=== PATIENT | male | born 1950 | race Caucasian/White ===

== ENCOUNTER 2018-07-30 08:44 | Inpatient (IN) ==
[2018-07-30] MEDS ORDERED: ASPIRIN CHEW 324 MG PO STA (09:43)
[2018-07-30] MEDS ORDERED: SODIUM CHLORIDE 0.9% 1000ML 1,000 ML IV SCH (09:45)
[2018-07-30] MEDS ORDERED: ASPIRIN 81 MG CHEW ONE (09:51)
[2018-07-30 09:53] LABS: Basophils # (auto) 0.08 K/uL (0-0.2); Basophils % (auto) 0.9 %; Eosinophils # (auto) 0.16 K/uL (0-0.5); Eosinophils % (auto) 1.7 %; Hematocrit (blood only) 42.2 % (42-52); Hemoglobin 14.2 g/dL (14.0-18.0); Immature Granulocytes # (auto) 0.03 K/uL (0.00-0.02); Immature Granulocytes % (auto) 0.3 %; Lymphocytes # (auto) 1.65 K/uL (1.2-3.4); Lymphocytes % (auto) 17.9 %; Mean Corpuscular Hgb Conc 33.6 g/dL (32-36); Mean Corpuscular Volume 87.7 fL (80-100); Mean Platelet Volume 10.7 fL (7.4-10.4); Monocytes # (auto) 0.56 K/uL (0.11-0.59); Monocytes % (auto) 6.1 %; Neutrophils # (auto) 6.75 K/uL (1.4-6.5); Neutrophils % (auto) 73.1 %; Platelet Count 244 K/uL (130-400); RDW Coefficient of Variation 13.2 % (11.5-14.5); RDW Standard Deviation 42.2 fL (36.4-46.3); Red Blood Count 4.81 M/uL (4.7-6.1); White Blood Count 9.23 K/uL (4.8-10.8)
[2018-07-30] MEDS ORDERED: METOPROLOL TARTRATE 50 MG TAB PO STA (09:59)
[2018-07-30 10:01] LABS: Alanine Aminotransferase 32 U/L (12-78); Albumin Level 3.6 gm/dl (3.4-5.0); Aspartate Aminotransferase 22 U/L (15-37); Blood Urea Nitrogen 17 mg/dl (7-18); Calcium 8.4 mg/dl (8.5-10.1); Carbon Dioxide 27 mmol/L (21-32); Chloride 109 mmol/L (98-107); Creatinine Clr Calc Pharmacy 58.1 ml/min; Est GFR (African American) 74.1; Est GFR (Non-African American) 63.9; Glucose 98 mg/dl (70-99); Magnesium 2.2 mg/dl (1.8-2.4); Potassium 4.6 mmol/L (3.5-5.1); Sodium 141 mmol/L (136-145)
[2018-07-30] MEDS ORDERED: METOPROLOL TARTRATE 25 MG TAB PO STA (10:01)
[2018-07-30 10:11] LABS: Albumin Globulin Ratio 1.1 (0.9-2); Alkaline Phosphatase 98 U/L (45-117); Bilirubin,Total 0.5 mg/dl (0.2-1); Globulin 3.3 gm/dl (2.5-4.0); Total Protein 6.9 gm/dl (6.4-8.2); Troponin I < 0.015 ng/ml (0-0.045)
[2018-07-30] MEDS ORDERED: SODIUM CHLORIDE 0.9% 1000ML 250 ML IV ONE (11:05)
--- NOTE | 2018-07-30 12:23 | History & Physical Report ---
Date of Service July 30, 2018 Assessment & Plan (1) Paroxysmal A-fib: Mr. Fenton is a very pleasant 68-year-old male with a history of GERD with Schatzki's ring dilation, Pyloric Stenosis, Remote History of PUD / H. pylori (no recurrence following triple therapy), Dyslipidemia, Non-Obstructive CAD (50% LAD Stenosis on Cardiac CTA), and Paroxysmal Atrial Fibrillation (which was initially diagnosed in February 2018 when he presented with tachypalpitations and profound near-syncope). Patient was in his usual state of health this weekend, however he spent the weekend at a couple of with several other couples. He did drink some alcohol yesterday including a gil and an IPA at lunchtime, followed by 2 [place]an coffees last night. In the ER he has showed a variety of rhythms -- including AFib with RVR, brief periods of Atrial Flutter with 2-1 conduction, and following the administration of Lopressor 25 mg -- patient has A-fib with a slow V rates, periods sinus rhythm, and sinus rhythm with 2nd degree AV Block with (2:1 conduction) with HR's in the mid 30's. I suspect that he may end up being diagnosed with Tachy- Orestes Syndrome at some point. -- Admit to Telemetry. -- Continue IVF fluids at 100 ml/hr. -- Reduce Aspirin to 81 mg daily. -- Begin Eliquis 5 mg bid as [id number] is 2. -- Begin Lopressor 12.5 mg bid. -- Continue Diltiazem CD 120 mg daily with hold parameters. Present on Admission?: Yes (2) CAD in rincon artery: Non-Obstructive CAD -- 50% LAD stenosis. -- Initial Troponin negative. -- No need for serial cardiac enzymes unless patient develops chest discomfort, dyspnea, etc. -- Patient had a negative Stress Echo within the past 6 months but failed to reach THR. -- Baseline Echo showed normal cardiac structure and function. -- Continue Rosuvastatin 10 mg daily. -- Continue Aspirin at 81 mg daily since starting Eliquis. -- Starting Lopressor 12.5 mg bid. Present on Admission?: Yes (3) Dyslipidemia: -- Rosuvastatin 10 mg daily. -- Heart healthy diet. Present on Admission?: Yes (4) Hypotension: Likely a combination of heart rhythm and dehydration (secondary alcohol and caffeine yeterday). -- Continue IVF's. -- Hold parameters on vaso-active meds. Present on Admission?: Yes History of Present Illness Chief Complaint: -- Paroxysmal Atrial Fibrillation with Intermittent RVR. -- Transient 2nd Degree Heart Block (2:1 AV Conduction). -- ? Tachy-Orestes Syndrome. -- Non- Obstructive CAD (50% LAD Stenosis on recent Cardiac CTA). Primary Care Provider: NO PCP Mr. Fenton is a very pleasant 68-year-old male with a history of GERD with Schatzki's ring dilation, Pyloric Stenosis, Remote History of PUD / H. pylori (no recurrence following triple therapy), Dyslipidemia, Non-Obstructive CAD (50% LAD Stenosis on Cardiac CTA), and Paroxysmal Atrial Fibrillation (which was initially diagnosed in February 2018 when he presented with tachypalpitations and profound near-syncope). Patient is followed by the [facility] (Dr. Pereyra) and he has a follow-up appointment with his editor managing newspaper this coming Tuesday. Patient was in his usual state of health this weekend, however he spent the weekend at a couple of with several other couples. He did drink some alcohol yesterday including a gil and an IPA at lunchtime, followed by 2 [place] coffees last night. Patient arose this morning and noted tachypalpitions and a "fast, irregular heartbeat." He took his usual dose of Diltiazem CD 120 mg this morning - but his heart continued to race. Therefore he came to the emergency room here. In the emergency room, he was noted to be in AFib with RVR, had brief periods of atrial flutter with 2-1 conduction, and following the administration of Lopressor 25 mg -- patient has developed A-fib with slow V rate and periods sinus rhythm and sinus rhythm with 2nd degree AV Block with (2:1 conduction) w ith HR's in the mid 30's. Patient offers no other complaints. He denies any chest pain, heaviness, tightness, pressure, or discomfort. He denies any neck, jaw, back, or arm pain. He denies any shortness of breath, unusual dyspnea exertion, recent changes in exertional tolerance, orthopnea, or PND. He denies any syncope or profound near-syncope. Historically, his blood pressure was low when he was initially diagnosed with atrial fibrillation. He is not having symptoms suggestive of stroke or mini stroke. Allergies Allergy/AdvReac Type Severity Reaction Status Date / Time No Known Allergies Allergy Unverified 07/30/18 09:30 Home Medications Home Medications Medication Instructions Recorded Confirmed Type aspirin 325 mg PO DAILY 07/30/18 07/30/18 History diltiazem HCl 120 mg PO QAM 07/30/18 07/30/18 History isosorbide mononitrate 30 mg PO QAM 07/30/18 07/30/18 History nitroglycerin 0.4 mg SUBLINGUAL DIRECTED PRN 07/30/18 07/30/18 History omeprazole 40 mg PO QAM 07/30/18 07/30/18 History rosuvastatin 10 mg PO DAILY 07/30/18 07/30/18 History Past Med/Surg History Medical History Afib Social History Preferred Language: French Communication Ability: Effective Physical Therapy Supervisor Required: No Beliefs That Will Affect Care: None Current Living Situation: Spouse Other Information That Helps Us Care for You: No Feels Safe at Home: Yes Safety Concerns: Feels Safe At This Time Smoking Status: Former smoker Hx Alcohol Use: Yes Hx Substance Use: No Physical Exam Vital Signs (Past 24 Hours): Last Vital Signs Temp 36.7 C 07/30/18 08:50 Pulse 64 07/30/18 12:09 Resp 18 07/30/18 12:09 BP 111/59 L 07/30/18 12:09 Pulse Ox 93 07/30/18 12:09 Physical Exam: General: Patient in no acute distress. HEENT: Head is atraumatic, normocephalic. EOMs intact. Sclerae anicteric. Facies symmetric. No perioral cyanosis. Neck: No JVD. Carotid upstrokes +2 bilaterally without bruits. JVP is not elevated. Chest and Lungs: Clear to auscultation throughout all lung tamayo, no wheezes, rales, or rhonchi. CVS: S1 and S2 are irregularly irregular with an apical rate of 68 bpm. No obvious murmurs, gallops, or rubs. PMI is nondisplaced. No lifts, heaves, or thrills. No abdominal aortic or renal bruits. Abdominal Exam: Bowel sounds present. No masses, organomegaly, or tenderness. Extremities: No clubbing, cyanosis, or edema. Intact posterior tibial and radial pulses bilaterally. Neurologic Exam: Patient is awake, alert, and oriented. Pleasant and cooperative. Answers questions appropriately. Speech is clear. Normal movement in all 4 extremities. Gait pattern was not assessed. Telemetry: -- AFib with RVR. -- Brief periods of atrial flutter with 2-1 conduction. Following the administration of Lopressor 25 mg: -- A-fib with slow V rates. -- Periods of sinus rhythm. -- Periods of sinus rhythm with 2nd degree AV Block with (2:1 conduction) with HR's in the mid 30's. Results & Data Laboratory Results Laboratory Results - last 24 hr 07/30/18 07/30/18 09:10 09:10 WBC 9.23 RBC 4.81 Hgb 14.2 Hct 42.2 MCV 87.7 MCH 29.5 MCHC 33.6 RDW Std Deviation 42.2 RDW Coeff of Kelvin 13.2 Plt Count 244 MPV 10.7 H Immature Gran % (Auto) 0.3 Neut % (Auto) 73.1 Lymph % (Auto) 17.9 [place] % (Auto) 6.1 Eos % (Auto) 1.7 Baso % (Auto) 0.9 Immature Gran # (Auto) 0.03 H Neut # (Auto) 6.75 H Lymph # (Auto) 1.65 [place] # (Auto) 0.56 Eos # (Auto) 0.16 Baso # (Auto) 0.08 Sodium 141 Potassium 4.6 Chloride 109 H Carbon Dioxide 27 Anion Gap 6.0 BUN 17 Creatinine 1.16 Est Cr Clr Drug Dosing 58.1 Est GFR ( Amer) 74.1 Est GFR (Non-Af Amer) 63.9 BUN/Creatinine Ratio 15.0 Glucose 98 Calcium 8.4 L Magnesium 2.2 Total Bilirubin 0.5 AST 22 ALT 32 Alkaline Phosphatase 98 Troponin I < 0.015 Total Protein 6.9 Albumin 3.6 Globulin 3.3 Albumin/Globulin Ratio 1.1 TSH 1.120 Medications Administered Active Medications Generic Name Dose Route Start Last Admin Trade Name Freq PRN Reason Stop Dose Admin Sodium Chloride 1,000 mls @ 125 mls/hr 07/30/18 09:45 07/30/18 09:49 Nss 1000ml IV 08/29/18 09:44 125 mls/hr .Q8H MAYURI Administration Code Status & VTE Plan Code Status Full Resuscitation VTE Prophylaxis Plan VTE Prophylaxis will be ordered: Yes Supervising Physician Co-Signing Physician Notes Basilio Rizvi MD (1) Hypotension Hypotension type: unspecified hypotension type Qualified Code(s): I95.9 - Hypotension, unspecified
[2018-07-30] MEDS ORDERED: NITROGLYCERIN SL 0.4 MG/TAB TAB SL PRN (12:48)
[2018-07-30] MEDS ORDERED: ACETAMINOPHEN 325 MG TAB PO PRN (13:10)
[2018-07-30] MEDS ORDERED: MAGNESIUM HYDROXIDE SUSP 30 ML UDC PO PRN (13:10)
[2018-07-30] MEDS ORDERED: ALUMINUM/MAGNESIUM/SIMETH (MAALOX MAX) 30 ML UDC PO PRN (13:10)
[2018-07-30] MEDS ORDERED: LORazepam 0.5 MG TAB PO PRN (13:10)
[2018-07-30] MEDS ORDERED: ONDANSETRON 4 MG OD TAB PO PRN (13:14)
[2018-07-30] MEDS: APIXABAN 5 MG TABLET PO SCH ×2 (14:49→20:24)
[2018-07-30] MEDS: ROSUVASTATIN CALCIUM 10 MG TAB PO SCH (14:50)
[2018-07-30] MEDS: NSS + 20MEQ KCL 20 MEQ/1,000 ML BAG IV SCH (14:51)
--- NOTE | 2018-07-30 15:14 | Emergency Department Note ---
Entered by Naomy Lao acting as a scribe for History of Present Illness General Chief complaint: Hypertension Stated complaint: RADPID HEART BEAT, IRREGULATE HEART BEAT Time Seen by Provider: 07/30/18 08:52 Source: patient History of Present Illness Onset (ago): hour(s) 6 Location: chest Pain Consistency: + now resolved and + other (episode ) Quality: + other (racing heartbeat) Associated symptoms: no chest pain, no diaphoresis and no shortness of breath Treatments prior to arrival: other (Diltiazem) The patient is a 68 year old male who presents to the Emergency Room with co mplaints of an episode of now resolved racing heartbeat that began at 0300 this morning, 6 hours prior to arrival. The patient states that he went back to bed and woke up with these symptoms again 4.5 hours later. The patient states that he took his diltiazem at this time for his symptoms, but states that this did not improve his symptoms immediately. The patient states that he could feel his heart racing, but denies sweating, shortness of breath, or chest pain with this episode. The patient states that he was found to have atrial fib and had a stress test, echo, and angiogram performed recently (last 2 weeks) which showed a 50-70% blockage in his left anterior descending artery. He states that he had no stents placed. The patient states that he was previously on Eliquis, but states that he now only takes Aspirin regularly. The patient states that he had alcohol last night. The patient states that he has an appointment with his buyer tobacco head in 5 days. Home Medications Home Medications Medication Instructions Recorded Confirmed Type aspirin 325 mg PO DAILY 07/30/18 07/30/18 History diltiazem HCl 120 mg PO QAM 07/30/18 07/30/18 History isosorbide mononitrate 30 mg PO QAM 07/30/18 07/30/18 History nitroglycerin 0.4 mg SUBLINGUAL DIRECTED PRN 07/30/18 07/30/18 History omeprazole 40 mg PO QAM 07/30/18 07/30/18 History rosuvastatin 10 mg PO DAILY 07/30/18 07/30/18 History metoprolol tartrate 12.5 mg PO BID 30 Days #30 tab 07/31/18 Rx Allergies Allergy/AdvReac Type Severity Reaction Status Date / Time No Known Allergies Allergy Unverified 07/30/18 09:30 Past Med/Surg History Medical History Afib Social History Preferred Language: Hebrew Beliefs That Will Affect Care: None Current Living Situation: Spouse Other Information That Helps Us Care for You: No Feels Safe at Home: Yes Safety Concerns: Feels Safe At This Time Smoking Status: Former smoker Hx Alcohol Use: Yes Hx Substance Use: No Review of Systems See HPI for pertinent positives & negatives. and A total of 10 systems reviewed and were otherwise negative Physical Exam Vital Signs Vital Signs - 24 hr 07/30/18 08:50 07/30/18 09:16 07/30/18 09:47 Temperature 36.7 C Temperature Source Oral Sepsis Recent Fever Within 48 Hours No Sepsis Action Taken by Nursing No Action Required Pulse Rate 80 Pulse Rate [Left Finger] 101 H Pulse Rhythm Regular Respiratory Rate 20 22 Respiratory Effort / Characteristics Non-Labored Spontaneous Respiratory Depth Normal Respiratory Pattern Regular Blood Pressure 121/79 Blood Pressure [Left Arm] 106/77 Blood Pressure Mean 93 Blood Pressure Mean [Left Arm] 86 Pulse Oximetry 96 95 96 Oxygen Delivery Method Room Air Room Air Room Air 07/30/18 10:37 07/30/18 12:09 07/30/18 12:20 Temperature Temperature Source Sepsis Recent Fever Within 48 Hours Sepsis Action Taken by Nursing Pulse Rate 64 Pulse Rate [Left Finger] 79 64 Pulse Rhythm Respiratory Rate 16 18 18 Respiratory Effort / Characteristics Respiratory Depth Respiratory Pattern Blood Pressure 111/59 L Blood Pressure [Left Arm] 111/71 111/59 L Blood Pressure Mean Blood Pressure Mean [Left Arm] 84 76 Pulse Oximetry 94 93 93 Oxygen Delivery Method Room Air Room Air Room Air Vital signs reviewed. General: Well-appearing 68 yo male, in no significant distress. HEENT: No scleral icterus, PERRLA, neck supple. Atraumatic. Cardiovascular: Regular rate and rhythm, no extra sounds. Currently a SR on the monitor. Pulmonary: Clear to auscultation bilaterally, normal work of breathing. Abdomen: Soft, nontender, nondistended, positive bowel sounds. Musculoskeletal: Atraumatic, no peripheral edema. Neurologic: Patient awake alert and oriented x 3, full strength in all 4 extremities. Cranial nerves 2 through 12 grossly intact. Skin: Warm, dry, no rash Course 0910: Past medical records reviewed. The patient was evaluated in room A3, and a complete history and physical examination were performed. 0959: I checked on and updated the patient. He states that he felt his heart racing earlier, but states that his heart rate feels like baseline currently. The patient states that he has never been on betablockers before. 1106: I updated the patient and informed him of the need for further evaluation. 1121: [facility]. Consultations Consultation #1: [facility]. Time: 11:21 Administered Medications Discontinued Medications Apixaban (Eliquis) 5 mg PO BID MAYURI Stop: 08/29/18 12:47 Last Admin: 07/31/18 08:29 Dose: 5 mg Documented by: [id number] Admin: 07/30/18 20:24 Dose: 5 mg Documented by: [id number] Admin: 07/30/18 14:49 Dose: 5 mg Documented by: [id number] Aspirin (Aspirin) 324 mg PO NOW STA Stop: 07/30/18 09:44 Last Admin: 07/30/18 09:52 Dose: 324 mg Documented by: [id number] Aspirin (Aspirin Chew) Confirm Administered Dose 324 mg .ROUTE .STK-MED ONE Stop: 07/30/18 09:52 Last Admin: 07/30/18 09:52 Dose: Not Given Documented by: [id number] Aspirin (Ecotrin Ectab) 81 mg PO QAM MAYURI Stop: 08/30/18 08:59 Last Admin: 07/31/18 08:30 Dose: 81 mg Documented by: [id number] Diltiazem HCl (Cardizem Cd) 120 mg PO QAM MAYURI Stop: 08/30/18 08:59 Last Admin: 07/31/18 08:30 Dose: 120 mg Documented by: [id number] Sodium Chloride (Nss 1000ml) 1,000 mls @ 125 mls/hr IV .Q8H MAYURI Stop: 08/29/18 09:44 Last Infusion: 07/30/18 13:43 Dose: 0 mls/hr Documented by: [id number] Admin: 07/30/18 09:49 Dose: 125 mls/hr Documented by: [id number] Sodium Chloride (Nss 1000ml) 250 mls @ 999 mls/hr IV .Q16M ONE Stop: 07/30/18 11:20 Last Infusion: 07/30/18 11:15 Dose: 0 mls/hr Documented by: [id number] Admin: 07/30/18 11:00 Dose: 999 mls/hr Documented by: [id number] Potassium Chloride/Sodium Chloride (Normal Saline W/20 Meq Kcl) 20 meq in 1,000 mls @ 100 mls/hr IV .Q10H [facility] Stop: 08/29/18 13:14 Last Infusion: 07/31/18 10:42 Dose: 0 mls/hr Documented by: [id number] Admin: 07/31/18 00:29 Dose: 100 mls/hr Documented by: [id number] Infusion: 07/31/18 00:29 Dose: 100 mls/hr Documented by: [id number] Admin: 07/30/18 14:51 Dose: 100 mls/hr Documented by: [id number] Isosorbide Mononitrate (Imdur Extended Rel) 30 mg PO [facility] Stop: 08/30/18 08:59 Last Admin: 07/31/18 08:29 Dose: 30 mg Documented by: [id number] Metoprolol Tartrate (Lopressor) 50 mg PO NOW STA Stop: 07/30/18 10:00 Last Admin: 07/30/18 10:05 Dose: Not Given Documented by: [id number] Metoprolol Tartrate (Lopressor) 25 mg PO NOW STA Stop: 07/30/18 10:02 Last Admin: 07/30/18 10:05 Dose: 25 mg Documented by: [id number] Metoprolol Tartrate (Lopressor) 12.[address] [facility] Stop: 08/29/18 20:59 Last Admin: 07/31/18 08:32 Dose: 12.5 mg Documented by: [id number] Admin: 07/30/18 20:24 Dose: 12.5 mg Documented by: [id number] Pantoprazole Sodium (Protonix) 40 mg PO [facility] Stop: 08/30/18 08:59 Last Admin: 07/31/18 08:30 Dose: 40 mg Documented by: [id number] Rosuvastatin Calcium (Crestor) 10 mg PO [facility] Stop: 08/29/18 12:47 Last Admin: 07/31/18 08:30 Dose: 10 mg Documented by: [id number] Admin: 07/30/18 14:50 Dose: 10 mg Documented by: [id number] Medical Decision Making Differential Diagnosis Differential diagnosis: Etiologies such as premature contractions, electrolyte abnormality, cardiac dysrhythmia, thyroid dysfunction, pulmonary embolism, infection, ga strointestinal, as well as others were entertained. Medical Records Attestation: I reviewed the patient's medical records. Home Medications Current Medication List: was personally reviewed by me Laboratory Data Attestation: I reviewed the patient's lab results. Result diagrams: 07/30/18 09:10 07/31/18 07:06 Lab Results 07/30/18 07/30/18 07/31/18 Range/Units 09:10 09:10 07:06 WBC 9.23 (4.8-10.8) K/uL RBC 4.81 (4.7-6.1) M/uL Hgb 14.2 (14.0-18.0) g/dL Hct 42.2 (42-52) % MCV 87.7 (80-100) fL MCH 29.5 (25-34) pg MCHC 33.6 (32-36) g/dL RDW Std Deviation 42.2 (36.4-46.3) fL RDW Coeff of Kelvin 13.2 (11.5-14.5) % Plt Count 244 (130-400) K/uL MPV 10.7 H (7.4-10.4) fL Immature Gran % (Auto) 0.3 % Neut % (Auto) 73.1 % Lymph % (Auto) 17.9 % [place] % (Auto) 6.1 % Eos % (Auto) 1.7 % Baso % (Auto) 0.9 % Immature Gran # (Auto) 0.03 H (0.00-0.02) K/uL Neut # (Auto) 6.75 H (1.4-6.5) K/uL Lymph # (Auto) 1.65 (1.2-3.4) K/uL [place] # (Auto) 0.56 (0.11-0.59) K/uL Eos # (Auto) 0.16 (0-0.5) K/uL Baso # (Auto) 0.08 (0-0.2) K/uL Sodium 141 144 (136-145) mmol/L Potassium 4.6 4.9 (3.5-5.1) mmol/L Chloride 109 H 113 H (98-107) mmol/L Carbon Dioxide 27 27 (21-32) mmol/L Anion Gap 6.0 3.0 (3-11) BUN 17 17 (7-18) mg/dl Creatinine 1.16 1.06 (0.6-1.4) mg/dl Est Cr Clr Drug Dosing 58.1 63.6 ml/min Est GFR ( Amer) 74.1 82.6 Est GFR (Non-Af Amer) 63.9 71.3 BUN/Creatinine Ratio 15.0 16.1 (10-20) Glucose 98 88 (70-99) mg/dl Calcium 8.4 L 7.9 L (8.5-10.1) mg/dl Magnesium 2.2 (1.8-2.4) mg/dl Total Bilirubin 0.5 (0.2-1) mg/dl AST 22 (15-37) U/L ALT 32 (12-78) U/L Alkaline Phosphatase 98 (45-117) U/L Troponin I < 0.015 (0-0.045) ng/ml Total Protein 6.9 (6.4-8.2) gm/dl Albumin 3.6 (3.4-5.0) gm/dl Globulin 3.3 (2.5-4.0) gm/dl Albumin/Globulin Ratio 1.1 (0.9-2) TSH 1.120 (0.300-4.500) uIu/ml ECG Data Attestation: I personally reviewed and interpreted this ECG as follows: Indication: tachycardia Rate (beats per minute): 127 Rhythm: atrial fibrillation (rapid) Findings: + other (QTC 406); no acute ischemic change Blood Pressure Blood Pressure Findings: Low blood pressure Blood Pressure Disposition: further management by hospitalist MDM Narrative This pt was evaluated and appeared to be in no distress. IV access was obtained and lab work was drawn. PT was placed on the traffic monitor specialist, found to i nitially be in rapid a fib by triage. A few min later on my eval was in a rate controlled a fib. Pt was observed to flip in and out of a fib frequently. He was given 25 mg po metoprolol and became a slow a fib. Pt is not anticoagulated and is difficult to control as he became hypotensive. He was given 250 mL bolus of NSS with good result. Pt was d/w the hospitalist service for further manage ment. He and his are aware of the plan and agree. Impression & Plan Paroxysmal A-fib, Hypotension Discharge Plan Visit Data *Final* Discharge Date/Time: 07/30/18 12:20 Chief Complaint: Hypertension Stated Complaint: RADPID HEART BEAT, IRREGULATE HEART BEAT ED Provider: Ann Rodarte Discharge Problem: Paroxysmal A-fib, Hypotension Patient Disposition: Admitted As Inpatient Condition: Good Discharge Instructions Interventions: ED Discharge Assessment Last Done: 07/30/18 12:20 Discharge Problem: Hypotension Qualifiers: Hypotension type: unspecified hypotension type Qualified Code(s): I95.9 - Hypotension, unspecified The scribe's documentation has been prepared under my direction and personally reviewed by me in its entirety. I confirm that the note above accurately reflects all work, treatment, procedures, and medical decision making performed by me.
[2018-07-30] MEDS: METOPROLOL TARTRATE 25 MG TAB PO SCH (20:24)
[2018-07-31] MEDS: NSS + 20MEQ KCL 20 MEQ/1,000 ML BAG IV SCH (00:29)
[2018-07-31 07:59] LABS: BUN Creatinine Ratio 16.1 (10-20); Calcium 7.9 mg/dl (8.5-10.1); Creatinine Clr Calc Pharmacy 63.6 ml/min; Est GFR (African American) 82.6; Est GFR (Non-African American) 71.3; Potassium 4.9 mmol/L (3.5-5.1)
[2018-07-31] MEDS: APIXABAN 5 MG TABLET PO SCH (08:29)
[2018-07-31] MEDS: ROSUVASTATIN CALCIUM 10 MG TAB PO SCH (08:30)
[2018-07-31] MEDS: METOPROLOL TARTRATE 25 MG TAB PO SCH (08:32)
[2018-07-31] MEDS ORDERED: ISOSORBIDE MONO EXTENDED REL 30 MG TABCR PO SCH (09:00)
[2018-07-31] MEDS ORDERED: ASPIRIN 81 MG ECTAB PO SCH (09:00)
[2018-07-31] MEDS ORDERED: dilTIAZem HCL 120 MG CAPCR PO SCH (09:00)
[2018-07-31] MEDS ORDERED: PANTOprazole 40 MG TAB PO SCH (09:00)
[2018-07-31] MEDS ORDERED: ROSUVASTATIN CALCIUM 10 MG TAB PO SCH (09:00)
--- NOTE | 2018-07-31 16:32 | Discharge Summary ---
Date of Service July 31, 2018 Admission HPI Per Admitting Provider Mr. Fenton is a very pleasant 68-year-old male with a history of GERD with Schatzki's ring dilation, Pyloric Stenosis, Remote History of PUD / H. pylori (no recurrence following triple therapy), Dyslipidemia, Non-Obstructive CAD (50% LAD Stenosis on Cardiac CTA), and Paroxysmal Atrial Fibrillation (which was initially diagnosed in February 2018 when he presented with tachypalpitations and profound near-syncope). Patient is followed by the [facility] (Dr. Pereyra) and he has a follow-up appointment with his tape rules printing machine operator this coming Tuesday. Patient was in his usual state of health this weekend, however he spent the weekend at a couple of with several other couples. He did drink some alcohol yesterday including a gil and an IPA at lunchtime, followed by 2 [place] coffees last night. Patient arose this morning and noted tachypalpitions and a "fast, irregular heartbeat." He took his usual dose of Diltiazem CD 120 mg this morning - but his heart continued to race. Therefore he came to the emergency room here. In the emergency room, he was noted to be in AFib with RVR, had brief periods of atrial flutter with 2-1 conduction, and following the administration of Lopressor 25 mg -- patient has developed A-fib with slow V rate and periods sinus rhythm and sinus rhythm with 2nd degree AV Block with (2:1 conduction) with HR's in the mid 30's. Patient offers no other complaints. He denies any chest pain, heaviness, tightness, pressure, or discomfort. He denies any neck, jaw, back, or arm pain. He denies any shortness of breath, unusual dyspnea exertion, recent changes in exertional tolerance, orthopnea, or PND. He denies any syncope or profound near-syncope. Historically, his blood pressure was low when he was initially diagnosed with atrial fibrillation. He is not having symptoms suggestive of stroke or mini stroke. Admission Exam Per Admitting Provider General: Patient in no acute distress. HEENT: Head is atraumatic, normocephalic. EOMs intact. Sclerae anicteric. Facies symmetric. No perioral cyanosis. Neck: No JVD. Carotid upstrokes +2 bilaterally without bruits. JVP is not elevated. Chest and Lungs: Clear to auscultation throughout all lung [place], no wheezes, rales, or rhonchi. CVS: S1 and S2 are irregularly irregular with an apical rate of 68 bpm. No obvious murmurs, gallops, or rubs. PMI is nondisplaced. No lifts, heaves, or thrills. No abdominal aortic or renal bruits. Abdominal Exam: Bowel sounds present. No masses, organomegaly, or tenderness. Extremities: No clubbing, cyanosis, or edema. Intact posterior tibial and radial pulses bilaterally. Neurologic Exam: Patient is awake, alert, and oriented. Pleasant and cooperative. Answers questions appropriately. Speech is clear. Normal movement in all 4 extremities. Gait pattern was not assessed. Principal Diagnosis Paroxysmal atrial fibrillation Discharge Exam Constitutional WD/WN, vitals as above Eyes PERRL, conjunctivae normal, anicteric sclerae ENMT external ear and nose normal, oropharynx normal Neck trachea midline, no thyromegaly Respiratory normal respiratory effort, lungs clear to auscultation Cardiovascular RRR, no murmur, no edema Gastrointestinal (Abdomen) normal bowel sounds, soft, nontender, no hepatosplenomegaly Musculoskeletal no cyanosis or clubbing, extremities motor strength 5/5 Skin no rashes, warm and dry Neurologic patellar DTR's 2+ bilat, sensation intact and PERRL, EOMI, accommodation nl, no face palsy, no dysarthria Psychiatric A+Ox3, euthymic affect Lymphatic no cervical or axillary lymphadenopathy Discharge Data Allergies Allergy/AdvReac Type Severity Reaction Status Date / Time No Known Allergies Allergy Unverified 07/30/18 09:30 Consultations 07/30/18 11:45 ED Decision to Admit Stat Hospital Course (1) Paroxysmal A-fib: Mr. Fenton is a very pleasant 68-year-old male with a history of GERD with Schatzki's ring dilation, Pyloric Stenosis, Remote History of PUD / H. pylori (no recurrence following triple therapy), Dyslipidemia, Non-Obstructive CAD (50% LAD Stenosis on Cardiac CTA), and Paroxysmal Atrial Fibrillation (which was initially diagnosed in February 2018 when he presented with tachypalpitations and profound near-syncope). Patient was in his usual state of health this weekend, however he spent the weekend at a couple of with several other couples. He did drink some alcohol yesterday including a gil and an IPA at lunchtime, followed by 2 [place] coffees last night. In the ER he has showed a variety of rhythms -- including AFib with RVR, brief periods of Atrial Flutter with 2-1 conduction, and following the administration of Lopressor 25 mg -- patient has A-fib with a slow V rates, periods sinus rhythm, and sinus rhythm with 2nd degree AV Block with (2:1 conduction) with HR's in the mid 30's. I suspect that he may end up being diagnosed with Tachy- Orestes Syndrome at some point. patient converted to NSR on metoprolol and continued on Diltiazem 120mg discussed with patient about anticoagulation he stated that he used to be on Eliquis briefly but his tape rules printing machine operator recommended 325mg aspirin he has a close follow up with his tape rules printing machine operator on Friday 08/04 will d/c home on Diltiazem 120mg daily, Lopressor 12.5mg BID continue aspirin 325mg follow up with [facility] on Tuesday likely just some afib/aflutter triggered by alcohol and caffeine intake (2) CAD in [place] artery: Non-Obstructive CAD -- 50% LAD stenosis. -- troponin cycled, negative -- Patient had a negative Stress Echo within the past 6 months but failed to reach THR. -- Baseline Echo showed normal cardiac structure and function. -- Continue Rosuvastatin 10 mg daily. -- Continue Aspirin -- Starting Lopressor 12.5 mg bid. (3) Dyslipidemia: -- Rosuvastatin 10 mg daily. -- Heart healthy diet. (4) Hypotension: Likely a combination of heart rhythm and dehydration (secondary alcohol and caffeine yeter). -- Continue IVF's. -- Hold parameters on vaso-active meds. Total Time Total Time Spent Total Time Spent (In Minutes): 35 minutes Total Time Includes: Examination of the Patient, Discharge Planning and Medication Reconciliation Discharge Plan Discharge Items Patient Disposition: Home - Self-Care Reason For Visit: PAF W/RVR Discharge Diagnosis: Paroxysmal afib with RVR Condition: Good Discharge Goals: Decrease discomfort and Improve function Activity: Resume your previous activity Lifting: None Bathing: No limitations Sexual Activity: Wait until after follow-up appointment Exercise/Sports: Wait until after follow-up appointment Driving/Machine Use: No limitations Non-emergency contact: Primary Care Provider and Cardiovascular Lab Director Call non-emergency contact if: you have any medication questions Follow-up/Referrals: PCP,NO [Primary Care Provider] - Diet: Heart Healthy Addtl Provider Instructions: Medications: - LOPRESSOR: 12.5mg (1/2 tablet) twice a day, next dose is due this evening Paroxysmal atrial fibrillation: back in normal sinus rhythm could have been triggered by alcohol and caffeine intake close follow up with cardiology on Tuesday recommended only additional medication for rate/rhythm control is the Lopressor continue Aspirin 325mg daily as this was previous recommendation from your tape rules printing machine operator can discuss resuming Eliquis with them on follow up Prescriptions: New metoprolol tartrate 25 mg Tablet 12.5 mg PO BID 30 Days Qty: 30 RF: 3 Continued aspirin 325 mg Tablet 325 mg PO DAILY RF: 0 isosorbide mononitrate 30 mg Tablet Extended Release 24 Hr 30 mg PO QAM RF: 0 omeprazole 40 mg Capsule,Delayed Release(Dr/Ec) 40 mg PO QAM RF: 0 diltiazem HCl 120 mg Tablet 120 mg PO QAM RF: 0 nitroglycerin 0.4 mg Tablet, Sublingual 0.4 mg Sublingual DIRECTED PRN (Reason: Chest Pain) RF: 0 rosuvastatin 10 mg Tablet 10 mg PO DAILY RF: 0 Stand-Alone Forms: [facility]charge Orders: Discharge Order (Routine); Ordered 07/31/18 Ordered By: Richard Laughlin Admission Data Admit Date/Time: 07/30/18 11:53 Attending Provider: Richard Laughlin Admit Provider: Basilio Rizvi Primary Care Provider: PCP,NO Other Providers: Basilio Rizvi Service: Telemetry Other Interventions: Discharge Summary Assessment (RN) Last Done: 07/31/18 10:27 DC Date/Time DO NOT enter until pt leaves facility: 07/31/18 10:55
== END 2018-07-31 10:55 | disposition home or self-care (01) | DRG 310 ==
LOC: ED 08:44 → SUATTDRO 12:16 → 2S 12:16
DX: I25.10 Atherosclerotic heart disease of native coronary artery without angina pectoris; I95.9 Hypotension, unspecified; E78.5 Hyperlipidemia, unspecified; Z87.891 Personal history of nicotine dependence; I48.0 Paroxysmal atrial fibrillation; Z79.82 Long term (current) use of aspirin; K21.9 Gastro-esophageal reflux disease without esophagitis; I44.1 Atrioventricular block, second degree